=== PATIENT | male | born 1995 | race Two or more races ===

== ENCOUNTER → 2016-09-30 | Outpatient (CLI) | payer BC ==
--- NOTE | 2016-09-30 13:03 | XR ---
EXAMINATION TYPE: XR lumbosacral spine min 4V , 5 VIEWS DATE OF EXAM ORDERED: 09/30/2016 HISTORY: M54.5 LBP. COMPARISON: None. FINDINGS: Vertebral body height and alignment are maintained. There is no spondylolysis or spondylol isthesis. Disc spaces are maintained. There is minor facet arthropathy in the L5-S1 facets bilaterall y. The pedicles are intact. IMPRESSION: MINIMAL FACET ARTHROPATHY, L5-S1 BILATERALLY.
== END | disposition home or self-care (01) ==
LOC: RADXRMAIN 12:19
PROVIDERS: ATTEND Pediatrics
DX: M46.87 Other specified inflammatory spondylopathies, lumbosacral region (principal)
CPT/HCPCS: 72110

== ENCOUNTER → 2016-10-12 | Outpatient (CLI) | payer BC ==
--- NOTE | 2016-10-12 15:15 | NM ---
EXAMINATION TYPE: NM bone scan whole body, NM bone SPECT DATE OF EXAM: 10/12/2016 COMPARISON: Lumbar spine 09/30/2016 HISTORY: Low back pain Delayed whole-body scanning was performed following the injection of 26.5 mCi Tc 99m MDP. Images acq uired 4 hours post injection. SPECT images obtained through the lumbar spine. FINDINGS: Soft tissue uptake is normal. Lumbar vertebral bodies show normal radiopharmaceutical uptake. Some mi ld increased uptake at the sternoclavicular joint on the right may be due to arthropathy change. IMPRESSION: No abnormality evident to account for patient's symptoms. Additional findings above.
== END | disposition home or self-care (01) ==
LOC: RADNMMAIN 09:55
PROVIDERS: ATTEND Orthopaedic Surgery Orthopaedic Surgery of the Spine
DX: M54.5 Low back pain (principal)
CPT/HCPCS: 78306; 78320; A9503

== ENCOUNTER → 2017-09-23 | Outpatient (CLI) | payer BC ==
[2017-09-23 13:58] LABS: Basophils % (A) 0 %; Eosinophils # (A) 0.2 k/uL (0-0.7); Eosinophils % (A) 2 %; HCT 39.3 % (39.0-53.0); HGB 12.9 gm/dL (13.0-17.5); Lymphocytes # (A) 2.1 k/uL (1.0-4.8); Lymphocytes % (A) 21 %; MCH 27.1 pg (25.0-35.0); MCHC 32.8 g/dL (31.0-37.0); MCV 82.7 fL (80.0-100.0); Mean Platelet Volume 6.6; Monocytes # (A) 0.6 k/uL (0-1.0); Monocytes % (A) 6 %; Neutrophils % (A) 70 %; Platelet Count 316 k/uL (150-450); RBC 4.75 m/uL (4.30-5.90)
== END | disposition home or self-care (01) ==
LOC: LABWHC1 13:29
PROVIDERS: ATTEND Family Medicine
DX: D72.829 Elevated white blood cell count, unspecified (principal); M25.551 Pain in right hip; R26.9 Unspecified abnormalities of gait and mobility
CPT/HCPCS: 36415; 85025; 87040

== ENCOUNTER 2017-09-30 14:55 | Emergency (ER) | payer BC ==
[2017-09-30 15:01] VITALS: RESP 18; TEMP 98.2
[2017-09-30 16:30] LABS: Basophils % (A) 0 %; Eosinophils # (A) 0.1 k/uL (0-0.7); Eosinophils % (A) 1 %; HCT 39.9 % (39.0-53.0); Lymphocytes # (A) 1.8 k/uL (1.0-4.8); Lymphocytes % (A) 16 %; MCH 26.5 pg (25.0-35.0); MCHC 32.6 g/dL (31.0-37.0); MCV 81.2 fL (80.0-100.0); Mean Platelet Volume 6.7; Monocytes # (A) 0.7 k/uL (0-1.0); Monocytes % (A) 6 %; Neutrophils # (A) 8.5 k/uL (1.3-7.7); Neutrophils % (A) 76 %; Platelet Count 387 k/uL (150-450); RBC 4.91 m/uL (4.30-5.90); RDW 14.2 % (11.5-15.5); WBC 11.3 k/uL (4.0-11.0)
[2017-09-30 16:41] LABS: Anion Gap 12 mmol/L; Blood Urea Nitrogen 16 mg/dL (9-20); Calcium 9.3 mg/dL (8.4-10.2); Carbon Dioxide 28 mmol/L (22-30); Chloride 103 mmol/L (98-107); Glucose 88 mg/dL (74-99); Sodium 143 mmol/L (137-145)
[2017-09-30 16:53] LABS: C Reactive Protein 32.5 mg/L (<10.0)
--- NOTE | 2017-09-30 17:34 | CT ---
EXAMINATION TYPE: CT hip RT w con DATE OF EXAM: 09/30/2017 COMPARISON: NONE HISTORY: Right hip pain x [address] DLP: 288 mGycm Automated exposure control for dose reduction was used. CONTRAST: Performed with IV Contrast, patient injected with 100 mL of Isovue M300. FINDINGS: Right sacroiliac joint appears normal. I see no fracture. There is slight narrowing of the hip joint space. There is acetabular spurring and minimal spurring on the femoral head. There is no collapse of the articular surface. IMPRESSION: THERE IS MODERATE OSTEOARTHRITIC JOINT SPACE NARROWING IN THIS RELATIVELY YOUNG PATIENT. NO FRACTURE SEEN.
--- NOTE | 2017-09-30 18:17 | ED ---
General Adult HPI - General Chief complaint: Extremity Injury, Lower Stated complaint: severe right hip pain-sent by Dr. Martínez Seen by Provider: 09/30/17 15:03 Source: patient Mode of arrival: ambulatory Limitations: no limitations - History of Present Illness Initial comments: Mr Esteban is a 21yo male with no PMH who presents today for CC of right hip pain x2 months. 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 He felt that the pain came on gradually and was localized to the hip without radiation, he thinks it is from repetitively bending down at work. He describes the pain as "almost constant" flucutating in intensity. The pain increases when the patient is walking or bending over. 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 Pt has been seeing his primary provider for care and is currently taking napoxen and tylenol which helps minimally. He denies any fever, chills, night sweats, shooting pain down the legs, numbness, tingling, loss of sensation of the LE, redness or swelling of the overlying joint or coolness of the LE. Pt was seen by PCP Dr Suh today who obtained XRAY of the right hip revealing joint space narrowing and blood work revealing increased WBC. She called Dr. Lake an attending in the ED in advance. Pt was then brought to the emergency department by his father. - Related Data Allergies Allergy/AdvReac Type Severity Reaction Status Date / Time No Known Allergies Allergy Verified 09/30/17 15:01 Review of Systems ROS Statement: Those systems with pertinent positive or pertinent negative responses have been documented in the HPI. ROS Other: All systems not noted in ROS Statement are negative. Constitutional: Denies: fever, chills Eyes: Denies: vision change ENT: Denies: throat pain Respiratory: Denies: dyspnea Cardiovascular: Denies: chest pain Gastrointestinal: Denies: abdominal pain, diarrhea, constipation Genitourinary: Denies: dysuria Musculoskeletal: Reports: as per HPI. Denies: back pain, myalgia Skin: Denies: rash Neurological: Reports: as per HPI. Denies: numbness, paresthesias Past Medical History Past Medical History: No Reported History History of Any Multi-Drug Resistant Organisms: None Reported Additional Past Surgical History / Comment(s): Finger Past Psychological History: No Psychological Hx Reported Smoking Status: Current every day smoker Past Alcohol Use History: None Reported Past Drug Use History: None Reported General Exam Limitations: no limitations General appearance: alert, in no apparent distress Eye exam: Present: normal appearance Neck exam: Present: normal inspection, full ROM Respiratory exam: Present: normal lung sounds bilaterally Cardiovascular Exam: Present: regular rate, normal rhythm, normal heart sounds Right Hip exam: Present: normal inspection, full ROM, tenderness. Absent: swelling, abrasion, ecchymosis, deformity, crepitus, erythema, external rotation, internal rotation, shortening Knee exam: Present: normal inspection, full ROM. Absent: tenderness, swelling Ankle exam: Present: normal inspection, full ROM. Absent: tenderness Foot/Toe exam: Present: normal inspection Neurovascular tendon exam: Present: no vascular compromise Gait: observed and limited by pain Back exam: Present: normal inspection, full ROM. Absent: tenderness Neurological exam: Present: alert, oriented X3, CN II-XII intact, normal gait Course Vital Signs 09/30/17 09/30/17 14:58 18:24 Temperature 98.2 F 98.2 F Pulse Rate 90 84 Respiratory 18 18 Rate Blood Pressure 121/70 118/70 O2 Sat by Pulse 99 99 Oximetry Medical Decision Making - Medical Decision Making Mr Esteban is a 21yo male with no PMH who presents today for CC of right hip pain x2 months. 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 He felt that the pain came on gradually and was localized to the hip without radiation, he thinks it is from repetitively bending down at work. He describes the pain as "almost constant" flucutating in intensity. The pain increases when the patient is walking or bending over. 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 Pt has been seeing his primary provider for care and is currently taking napoxen and tylenol which helps minimally. He denies any shooting pain down the legs, numbness, tingling, loss of sensation of the LE, redness or swelling of the overlying joint or coolness of the LE. Pt was seen by PCP Dr Susko today who obtained XRAY of the right hip revealing joint space narrowing and blood work revealing increased WBC. She called Dr. Lake an attending in the ED in advance. Dr. Lake recommended ordering CT of the right hip, CBC and CRP. Physical examination of the right hip revealed no overlying erythema, warmth or swelling of the right hip or LE, no point tenderness over the hip joint, no tenderness to palpation of the quadracepts, buttock or hamstrings. Pt was able to active and passively range hip with some pain. muscle strength testing +5/5 for UE and LE b/l and DTR of the LE +2. Full sensation of the lower extremities. And +2 dorsalis pedis pulses b/l. Full ROM of lumbar spine and no tenderness to palpation over the lumbar spine. CRP returned elevated at 32.5 and WBC mildly elevated at 11.3. BMP returned WNL. And CT showed moderate osteoarthritis and joint space narrowing with no acute fracture. Case was discussed with Dr. Albert. At this point we felt patient was in stable condition should follow-up with orthopedic associated in 1-2 days. pt can continue to take naproxen and tylenol for pain management and return to the emergency department if the symptoms worsen. - Lab Data Result diagrams: 09/30/17 16:21 09/30/17 16:21 Lab Results 09/30/17 09/30/17 Range/Units 16:21 16:21 WBC 11.3 H (4.0-11.0) k/uL RBC 4.91 (4.30-5.90) m/uL Hgb 13.0 (13.0-17.5) gm/dL Hct 39.9 (39.0-53.0) % MCV 81.2 (80.0-100.0) fL MCH 26.5 (25.0-35.0) pg MCHC 32.6 (31.0-37.0) g/dL RDW 14.2 (11.5-15.5) % Plt Count 387 (150-450) k/uL Neutrophils % 76 % Lymphocytes % 16 % Monocytes % 6 % Eosinophils % 1 % Basophils % 0 % Neutrophils # 8.5 H (1.3-7.7) k/uL Lymphocytes # 1.8 (1.0-4.8) k/uL Monocytes # 0.7 (0-1.0) k/uL Eosinophils # 0.1 (0-0.7) k/uL Basophils # 0.0 (0-0.2) k/uL Sodium 143 (137-145) mmol/L Potassium 5.0 (3.5-5.1) mmol/L Chloride 103 (98-107) mmol/L Carbon Dioxide 28 (22-30) mmol/L Anion Gap 12 mmol/L BUN 16 (9-20) mg/dL Creatinine 0.91 (0.66-1.25) mg/dL Est GFR (CKD-EPI)AfAm >90 (>60 ml/min/1.73 sqM) Est GFR (CKD-EPI)NonAf >90 (>60 ml/min/1.73 sqM) Glucose 88 (74-99) mg/dL Calcium 9.3 (8.4-10.2) mg/dL C-Reactive Protein 32.5 H (<10.0) mg/L Disposition Clinical Impression: Right hip pain Disposition: HOME SELF-CARE Condition: Good Additional Instructions: Pt to continue home medications of naproxen and tylenol for pain management. Please follow-up with orthopedics or family doctor in the next 2 days of symptoms have not improved. Please return to emergency room if the symptoms increase or worsen or for any other concerns. Is patient prescribed a controlled substance at d/c from ED?: No Referrals: Tiffany Suh MD [Primary Care Provider] - 1-2 days Harpal Patiño MD [Medical Doctor] - 1-2 days
[2017-09-30 18:25] VITALS: BP 118/70; PULSE 84
== END 2017-09-30 18:25 | disposition home or self-care (01) ==
LOC: EC 14:55
DX: M25.551 Pain in right hip (principal); F17.200 Nicotine dependence, unspecified, uncomplicated
CPT/HCPCS: 36415; 80048; 85025; 86140; 87040; 73701; 99284; Q9967